=== PATIENT | male | born 1990 | race Caucasian/White ===

== ENCOUNTER 2019-02-02 19:08 | Emergency (ER) | payer OTHER ==
[~2019-02-02] VITALS: Ht 177.8 cm; Wt 81.6 kg
[2019-02-02] MEDS ORDERED: OMEPRAZOLE20 MG PO (19:22)
[2019-02-02] MEDS ORDERED: SEROQUEL100 MG PO (19:22)
[2019-02-02] MEDS ORDERED: NAPROSYN500 MG PO (19:23)
--- OUTSIDE RECORDS SUMMARY | 2019-02-02 19:50 | XMS ---
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 Jax VISIT COUNT (12 MO.) 1 [facility] 2 [facility] 4 [facility] 1 [facility] TOTAL 8 NOTE: Visits indicate total known visits. ED/UCC VISIT TRACKING (12 MO.) 02/02/2019 19:09 [facility] [place] TYPE: Emergency COMPLAINT: - RIGHT FLANK PAIN 12/22/2018 17:30 [facility] [place] TYPE: Emergency DIAGNOSES: - Unspecified abdominal pain - KIDNEY PAIN 12/16/2018 09:10 [facility] [place] TYPE: Emergency DIAGNOSES: - RIGHT SIDE ABDOMINAL PAIN - Unspecified abdominal pain 05/21/2018 14:58 [facility] [place] TYPE: Emergency DIAGNOSES: - Unspecified renal colic - POSS KIDNEY STONES 04/29/2018 17:27 [facility] [place] TYPE: Emergency DIAGNOSES: - Anxiety disorder, unspecified - Suicidal ideations - Major depressive disorder, recurrent severe without psychotic features - Anxiety depression 03/26/2018 15:02 [facility] [place] TYPE: Emergency DIAGNOSES: - Flank Pain - Calculus of ureter - Lower back pain- possible kidney stone previous hx - Lower back pain- hx of kidney stones 02/27/2018 11:38 [facility] [place] TYPE: Emergency COMPLAINT: - FLANK PAIN 02/17/2018 13:49 [facility] [place] TYPE: Emergency DIAGNOSES: - Calculus of kidney - Flank Pain INPATIENT VISIT TRACKING (12 MO.) No inpatient visits to display in this time frame [email or web address]
== END 2019-02-02 21:38 | disposition home or self-care (01) ==
LOC: ED 19:08
DX: R10.9 Unspecified abdominal pain (principal); F17.200 Nicotine dependence, unspecified, uncomplicated; Z87.442 Personal history of urinary calculi; Z88.6 Allergy status to analgesic agent; Z90.49 Acquired absence of other specified parts of digestive tract; Z79.899 Other long term (current) drug therapy
CPT/HCPCS: 74176; 80053; 81001; 85025; 96374; 96375; 99284-25; J1170; J2405